=== PATIENT | male | born 1985 | race Caucasian/White ===

== ENCOUNTER → 2016-04-14 | Outpatient (CLI) | payer OTHER ==
--- NOTE | 2016-04-14 14:01 | KCIC ---
PROCEDURE Complete abdominal ultrasound HISTORY Vomiting and nausea. COMPARISON None FINDINGS Pancreas is grossly unremarkable. Mild pancreatic duct dilatation, 2.5 millimeters wide. Liver mildly enlarged. No evidence of gallstone or gallbladder wall thickening. Common bile duct is 4 millimeters diameter. Right kidney unremarkable without hydronephrosis. Measures 12.7 cm longitudinal Left kidney unremarkable without hydronephrosis, measures 11.7 cm longitudinal. Spleen mildly enlarged, 13.2 centimeters. The aorta is ectatic, measuring 2.5 centimeters transverse diameter at its proximal aspect. No focal aneurysm. IMPRESSION 1. Mild hepatosplenomegaly. 2. Mild pancreatic duct dilatation. 3. The abdominal aorta is ectatic, measuring up to 2.5 cm AP diameter proximally. No focal aneurysm. Electronically signed by: Los Cherry MD (Apr 14, 2016 13:59:40)
== END | disposition home or self-care (01) ==
LOC: KCIC US 12:22
PROVIDERS: ATTEND Family Medicine
DX: R11.2 Nausea with vomiting, unspecified (principal); R16.2 Hepatomegaly with splenomegaly, not elsewhere classified
CPT/HCPCS: 76700

== ENCOUNTER → 2017-04-25 | Outpatient (CLI) | payer OTHER | END | disposition home or self-care (01) | LOC: KCIC CT 10:22 | DX: G44.311 Acute post-traumatic headache, intractable (principal) | CPT/HCPCS: 70450 ==